=== PATIENT | male | born 1985 | race Caucasian/White ===

== ENCOUNTER 2019-05-30 09:26 | Emergency (ER) | payer MEDICAID ==
[~2019-05-30] VITALS: Ht 172.7 cm; Wt 83.0 kg
[2019-05-30] MEDS ORDERED: KETOROLAC 30MG/ML VIAL IM ONE (10:15)
[2019-05-30 10:53] LABS: CLARITY URINE CLEAR (CLEAR); COLOR URINE YELLOW (YELLOW); KETONES URINE NEGATIVE (NEGATIVE); LEUKOCYTE ESTERASE URINE NEGATIVE (NEGATIVE); NITRITE URINE NEGATIVE (NEGATIVE); OCCULT BLOOD URINE TRACE (NEGATIVE); PROTEIN URINE NEGATIVE (NEGATIVE); SPECIFIC GRAVITY URINE 1.018 (1.005-1.030); UROBILINOGEN URINE 0.2 E.U./dL (0.2-1.0)
[2019-05-30 11:21] VITALS: BP 128/74
== END 2019-05-30 11:21 | disposition home or self-care (01) ==
LOC: ER 09:26
DX: M54.5 Low back pain (principal)
CPT/HCPCS: 81003; 96372; 99283; J1885

== ENCOUNTER 2020-05-02 23:12 | Emergency (ER) | payer MEDICAID ==
[~2020-05-02] VITALS: Ht 172.7 cm; Wt 85.0 kg
[2020-05-02 23:26] VITALS: BP 136/94
== END 2020-05-03 00:52 | disposition home or self-care (01) ==
LOC: ER 23:12
DX: L25.8 Unspecified contact dermatitis due to other agents (principal)
CPT/HCPCS: 99282